=== PATIENT | male | born 1980 | race Caucasian/White ===

== ENCOUNTER 2017-08-06 00:01 | Emergency (ER) | payer MEDICARE, MEDICAID ==
[~2017-08-06] VITALS: Ht 177.8 cm; Wt 81.6 kg
--- NOTE | 2017-08-06 00:06 | NUR ---
37 YO MALE BB RA [address] STREETS FOR ETOH INTOXICATION. PT ASSSITED TO ER BED. SKIN WARM AND DRY, RR EVEN AND UNLABORED. 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 WILL CONTINUE TO MONITOR
--- NOTE | 2017-08-06 00:07 | NUR ---
BIB [facility]. 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 PER [facility], PT WAS FOUND ON THE SIDEAWALK, POSSIBLE ETOH INTOXICATION. VITALS WNL, BP 122/77, HR 58. PT STATES HE FEELS FINE AND WANTS TO REST.
[2017-08-06 03:19] VITALS: BP 120/75
--- NOTE | 2017-08-06 03:20 | NUR ---
PT AWAKE, A/O X4. ABLE TO AMBULATE WITH STEADY GAIT. VITALS WNL. DENIED DIZZINESS OR NAUSEA.
== END 2017-08-06 03:21 | disposition home or self-care (01) ==
LOC: ER 00:04
DX: F10.129 Alcohol abuse with intoxication, unspecified (principal); R79.89 Other specified abnormal findings of blood chemistry
CPT/HCPCS: 82962; 99283; A4606; Z7610